=== PATIENT | female | born 1955 | race Caucasian/White ===

== ENCOUNTER 2023-12-30 12:36 | Emergency (ER) | payer MEDICARE ==
[~2023-12-30] VITALS: Ht 154.9 cm; Wt 68.0 kg
[2023-12-30 12:43] VITALS: TEMP 98.6
[2023-12-30] MEDS: EPINEPHRINE HCL 1:1000 1ML 1 MG/ML AMP INJ ONE (12:51)
[2023-12-30] MEDS: DIPHENHYDRAMINE HCL INJ 50 MG/ML VIAL IV ONE (12:51)
[2023-12-30] MEDS: METHYLPREDNISOLONE SOD SUCC 125 MG/2ML VIAL IV STA (12:51)
[2023-12-30] MEDS: FAMOTIDINE 20 MG/2 ML VIAL IV STA (12:52)
[2023-12-30] MEDS: SODIUM CHLORIDE 0.9% 1000ML 1,000 ML IV STA (12:52)
[2023-12-30] MEDS: DEXAMETHASONE SOD PHOS 10 MG/1 ML VIAL IV ONE (14:19)
[2023-12-30 16:01] VITALS: PULSE 85; RESP 16
[2023-12-30] MEDS ORDERED: EPINEPHRIN0.3 MG/0.3 IM (17:07)
[2023-12-30] MEDS ORDERED: MEDROL4 M2 PO (17:07)
[2023-12-30 17:20] VITALS: BP 128/82; PULSE 80; RESP 18; O2SAT 100
== END 2023-12-30 17:26 | disposition home or self-care (01) ==
LOC: ER 12:41
DX: R06.00 Dyspnea, unspecified (principal); T78.40XA Allergy, unspecified, initial encounter; I10 Essential (primary) hypertension; E11.9 Type 2 diabetes mellitus without complications; E03.9 Hypothyroidism, unspecified; Z98.84 Bariatric surgery status
CPT/HCPCS: 99283; J1100